=== PATIENT | female | born 1960 | race Caucasian/White ===

== ENCOUNTER 2020-05-10 14:58 | Outpatient (REF) | payer SELFPAY ==
[2020-05-11 05:03] LABS: SARS COV2 IgG Negative (Negative)
== END 2020-05-10 14:59 | disposition home or self-care (01) ==
LOC: HO.LNC 14:58
PROVIDERS: Visit Provider Pathology Anatomic Pathology & Clinical Pathology
DX: Z20.828 Contact with and (suspected) exposure to other viral communicable diseases (principal)
CPT/HCPCS: 86769

== ENCOUNTER 2021-12-04 11:40 | Outpatient (REF) | payer BC, SELFPAY ==
--- NOTE | ~2021-12-04 | XR_ITS ---
EXAMINATION: XR ANKLE, RIGHT XR FOOT, RIGHT CLINICAL INFORMATION: Pain. COMPARISON: None TECHNIQUE: AP, oblique, and lateral views of the right ankle and foot. FINDINGS: No acute fracture or dislocation. Mild joint space narrowing with tiny marginal osteophytes at the 1st tarsometatarsal joint. Flattening of the 2nd metatarsal head and which could be related to chronic arthropathy or avascular necrosis. No associated erosion. No abnormal soft tissue calcification. No significant ankle joint effusion. XR/XR foot RT min 3V IMPRESSION: No acute fracture or dislocation. Flattening of the 2nd metatarsal head which could be sequela of chronic arthropathy or avascular necrosis. No associated erosion or fracture. 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
--- NOTE | ~2021-12-04 | XR_ITS ---
EXAMINATION: XR ANKLE, RIGHT XR FOOT, RIGHT CLINICAL INFORMATION: Pain. COMPARISON: None TECHNIQUE: AP, oblique, and lateral views of the right ankle and foot. FINDINGS: No acute fracture or dislocation. Mild joint space narrowing with tiny marginal osteophytes at the 1st tarsometatarsal joint. Flattening of the 2nd metatarsal head and which could be related to chronic arthropathy or avascular necrosis. No associated erosion. No abnormal soft tissue calcification. No significant ankle joint effusion. XR/XR ankle RT 2V IMPRESSION: No acute fracture or dislocation. Flattening of the 2nd metatarsal head which could be sequela of chronic arthropathy or avascular necrosis. No associated erosion or fracture. 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
== END 2021-12-04 11:41 | disposition home or self-care (01) ==
LOC: HO.HMGCX 11:40
PROVIDERS: Visit Provider Physician Assistant
DX: M79.671 Pain in right foot (principal)
CPT/HCPCS: 73600; 73630